=== PATIENT | female | born 1995 | race Hispanic/Latino ===

== ENCOUNTER 2018-09-20 02:33 | Emergency (ER) | payer MEDICAID, OTHER ==
[~2018-09-20 02:33] MED LIST: DOCU-116 PO; IBUP-2077 PO; PREN-154 PO
[2018-09-20 02:53] LABS: APPEARANCE,URINE Clear (CLEAR); BILIRUBIN,URINE Negative (NEGATIVE); COLOR,URINE Yellow (YELLOW); GLUCOSE, URINE (UA) Negative (NEGATIVE); KETONES,URINE Negative (NEGATIVE); LEUKOCYTE ESTERASE ,URINE Negative (NEGATIVE); NITRATE,URINE Negative (NEGATIVE); OCCULT BLOOD,URINE Trace (NEGATIVE); PROTEIN,URINE Negative (NEGATIVE)
[2018-09-20 03:01] LABS: AMPHET/METH SCREEN,URINE NEGATIVE (NEGATIVE); BARBITURATE SCREEN, URINE NEGATIVE (NEGATIVE); BENZODIAZEPINES SCREEN,URINE NEGATIVE (NEGATIVE); CANNABINOID SCREEN,URINE NEGATIVE (NEGATIVE); COCAINE SCREEN,URINE NEGATIVE (NEGATIVE); OPIATE SCREEN,URINE NEGATIVE (NEGATIVE); PHENCYCLIDINE SCREEN,URINE NEGATIVE (NEGATIVE)
[2018-09-20 03:05] LABS: BACTERIA,URINE None Seen /HPF (None Seen); MUCUS,URINE Many LPF (None Seen); RBC,URINE None Seen /HPF (0-1); SQUAMOUS EPITHELIAL CELL,UR Few /HPF (0-2); WBC,URINE None Seen /HPF (0-1)
[2018-09-20 03:06] LABS: HCG,QUAL RESULT POSITIVE (NEGATIVE)
[2018-09-20 03:24] LABS: BASOPHILS % (AUTO) 0.8 % (0.0-5.0); EOSINOPHILS % (AUTO) 1.3 % (0.0-8.0); HEMATOCRIT 38.2 % (36-48); MEAN CORPUSCULAR HEMOGLOBIN 25.1 pg (27.0-33.0); MEAN CORPUSCULAR HGB CONC 32.7 g/dL (32.0-36.0); MEAN CORPUSCULAR VOLUME 76.7 fL (79-99); MONOCYTES % (AUTO) 6.1 % (3.0-13.0); NEUTROPHILS % (AUTO) 64.8 % (40.0-77.0); NUCLEATED RED BLOOD CELLS 0.1 % (0.0-0.19); PLATELET COUNT (AUTO) 294 K/uL (130-400); RED BLOOD CELL COUNT(AUTO) 4.98 MIL/uL (4.00-5.50); RED CELL DISTRIBUTION WIDTH 16.8 % (11.0-15.5); WHITE BLOOD COUNT (AUTO) 8.2 K/uL (4.8-10.8)
[2018-09-20 03:32] LABS: CREATININE 0.6 mg/dL (0.5-1.5); POTASSIUM 3.9 mmol/L (3.5-5.1)
[2018-09-20 03:57] LABS: ALBUMIN 3.6 g/dL (3.5-5.0); BILIRUBIN,TOTAL 0.4 mg/dL (0.2-1.0)
[2018-09-20] MEDS ORDERED: ACETAMINOPHEN 325 MG TAB ONE (05:01)
== END 2018-09-20 05:44 | disposition home or self-care (01) ==
LOC: EDH 02:33
DX: O20.0 Threatened abortion (principal); Z3A.01 Less than 8 weeks gestation of pregnancy
CPT/HCPCS: 36415; 76801; 80053; 80305; 81001; 81025; 84702; 85025

== ENCOUNTER 2018-12-20 21:35 | Emergency (ER) | payer MEDICAID ==
[2018-12-20 22:25] LABS: BASOPHILS % (AUTO) 0.5 % (0.0-5.0); EOSINOPHILS % (AUTO) 0.8 % (0.0-8.0); HEMATOCRIT 39.6 % (36-48); LYMPHOCYTES % (AUTO) 24.6 % (21.0-51.0); MEAN CORPUSCULAR HEMOGLOBIN 25.1 pg (27.0-33.0); MONOCYTES % (AUTO) 5.9 % (3.0-13.0); NEUTROPHILS % (AUTO) 68.2 % (40.0-77.0); PLATELET COUNT (AUTO) 276 K/uL (130-400); RED BLOOD CELL COUNT(AUTO) 5.21 MIL/uL (4.00-5.50); RED CELL DISTRIBUTION WIDTH 16.7 % (11.0-15.5); WHITE BLOOD COUNT (AUTO) 7.9 K/uL (4.8-10.8)
== END 2018-12-20 23:51 | disposition home or self-care (01) ==
LOC: EDH 21:35
DX: O20.0 Threatened abortion (principal); Z3A.13 13 weeks gestation of pregnancy
CPT/HCPCS: 36415; 76801; 76802; 84702; 85025; 86900; 86901

== ENCOUNTER 2019-01-22 01:52 | Emergency (ER) | payer MEDICAID ==
[2019-01-22 03:02] LABS: APPEARANCE,URINE Clear (CLEAR); BILIRUBIN,URINE Negative (NEGATIVE); COLOR,URINE Yellow (YELLOW); GLUCOSE, URINE (UA) Negative (NEGATIVE); KETONES,URINE Negative (NEGATIVE); LEUKOCYTE ESTERASE ,URINE Trace (NEGATIVE); NITRATE,URINE Negative (NEGATIVE); OCCULT BLOOD,URINE Large (NEGATIVE); PH,URINE 6.5 (5.0-8.0); PROTEIN,URINE Negative (NEGATIVE)
[2019-01-22 03:10] LABS: CREATININE 0.4 mg/dL (0.5-1.5); POTASSIUM 3.6 mmol/L (3.5-5.1)
[2019-01-22 03:16] LABS: BACTERIA,URINE Few /HPF (None Seen); RBC,URINE 0-1 /HPF (0-1); WBC,URINE 0-1 /HPF (0-1)
[2019-01-22 03:17] LABS: BASOPHILS % (AUTO) 0.5 % (0.0-5.0); EOSINOPHILS % (AUTO) 1.5 % (0.0-8.0); HEMATOCRIT 30.1 % (36-48); LYMPHOCYTES % (AUTO) 31.4 % (21.0-51.0); MEAN CORPUSCULAR HEMOGLOBIN 24.3 pg (27.0-33.0); MEAN CORPUSCULAR HGB CONC 32.6 g/dL (32.0-36.0); MEAN CORPUSCULAR VOLUME 74.6 fL (79-99); MONOCYTES % (AUTO) 7.1 % (3.0-13.0); NEUTROPHILS % (AUTO) 59.5 % (40.0-77.0); NUCLEATED RED BLOOD CELLS 0.1 % (0.0-0.19); PLATELET COUNT (AUTO) 256 K/uL (130-400); RED BLOOD CELL COUNT(AUTO) 4.03 MIL/uL (4.00-5.50); RED CELL DISTRIBUTION WIDTH 16.9 % (11.0-15.5); WHITE BLOOD COUNT (AUTO) 7.8 K/uL (4.8-10.8)
[2019-01-22 03:17] LABS: MUCUS,URINE Few LPF (None Seen); SQUAMOUS EPITHELIAL CELL,UR Few /HPF (0-2)
[2019-01-22 03:36] LABS: ALBUMIN 2.6 g/dL (3.5-5.0); BILIRUBIN,TOTAL 0.2 mg/dL (0.2-1.0); TOTAL PROTEIN, SERUM 6.1 g/dL (6.0-8.3)
== END 2019-01-22 05:44 | disposition home or self-care (01) ==
LOC: EDH 01:52
DX: O26.892 Other specified pregnancy related conditions, second trimester (principal); R10.2 Pelvic and perineal pain; O20.9 Hemorrhage in early pregnancy, unspecified; Z3A.16 16 weeks gestation of pregnancy
CPT/HCPCS: 36415; 76805; 76810; 80053; 81001; 83690; 84702; 85025

== ENCOUNTER 2019-11-27 20:30 | Inpatient (IN) | payer MEDICAID ==
[~2019-11-27] VITALS: Ht 154.9 cm; Wt 96.6 kg
[2019-11-27] MEDS ORDERED: LACTATED RINGERS 1000ML IV PRN (20:45)
[2019-11-27 20:49] VITALS: BP 114/68
[2019-11-27 21:20] LABS: APPEARANCE,URINE Cloudy (CLEAR); BILIRUBIN,URINE Negative (NEGATIVE); COLOR,URINE Yellow (YELLOW); GLUCOSE, URINE (UA) Negative (NEGATIVE); KETONES,URINE Trace mg/dL (NEGATIVE); LEUKOCYTE ESTERASE ,URINE Small (NEGATIVE); NITRATE,URINE Negative (NEGATIVE); OCCULT BLOOD,URINE Negative (NEGATIVE); PH,URINE 5.5 (5.0-8.0); PROTEIN,URINE Trace mg/dL (NEGATIVE)
[2019-11-27 21:32] LABS: BACTERIA,URINE Few /HPF (None Seen); CALCIUM OXALATE CRYSTALS,UR Few /LPF (None Seen); RBC,URINE None Seen /HPF (0-1); WBC,URINE 0-1 /HPF (0-1)
[2019-11-27 22:00] LABS: AMPHET/METH SCREEN,URINE NEGATIVE (NEGATIVE); BARBITURATE SCREEN, URINE NEGATIVE (NEGATIVE); BENZODIAZEPINES SCREEN,URINE NEGATIVE (NEGATIVE); CANNABINOID SCREEN,URINE NEGATIVE (NEGATIVE); COCAINE SCREEN,URINE NEGATIVE (NEGATIVE); OPIATE SCREEN,URINE NEGATIVE (NEGATIVE); PHENCYCLIDINE SCREEN,URINE NEGATIVE (NEGATIVE)
[2019-11-27] MEDS ORDERED: MEPERIDINE-PF 50 MG/ML SYG IVP PRN (22:15)
[2019-11-27] MEDS ORDERED: PROMETHAZINE HCL 25 MG/ML 1ML AMPULE IM PRN (22:15)
[2019-11-27 23:05] LABS: HEMATOCRIT 24.7 % (36-48); MEAN CORPUSCULAR HEMOGLOBIN 19.7 pg (27.0-33.0); MEAN CORPUSCULAR HGB CONC 28.7 g/dL (32.0-36.0); MEAN CORPUSCULAR VOLUME 68.6 fL (79-99); NUCLEATED RED BLOOD CELLS 1.1 % (0.0-0.19); PLATELET COUNT (AUTO) 154 K/uL (130-400); RED CELL DISTRIBUTION WIDTH 19.2 % (11.0-15.5)
[2019-11-28] MEDS: LACTATED RINGERS 1000ML 1,000 ML IV PRN ×2 (00:48→03:34)
[2019-11-28] MEDS ORDERED: OXYTOCIN 10 USP UNITS/ML 20 UNIT in LACTATED RINGERS 1000ML 1,000 ML IV SCH (05:15)
[2019-11-28] MEDS: OXYTOCIN-LR 20 UNITS/1000 ML 1,000 ML IV SCH ×2 (05:23→22:15)
[2019-11-28] MEDS ORDERED: LACTATED RINGERS 500 ML 500 ML IV PRN (05:45)
[2019-11-28] MEDS ORDERED: ROPIVACAINE 0.2% 100ML VIAL 100 ML EP SCH (05:45)
[2019-11-28] MEDS ORDERED: NALOXONE HCL 0.4 MG/1 ML ML IV PRN (05:45)
[2019-11-28] MEDS ORDERED: EPHEDRINE SULFATE 50 MG/ML AMPULE IVP PRN (05:45)
[2019-11-28] MEDS ORDERED: DiphenhydrAMINE HCL 50 MG/ML VIAL IVP PRN (07:30)
[2019-11-28] MEDS ORDERED: NALOXONE HCL 0.4 MG/1 ML ML IVP PRN ×3 (07:30)
[2019-11-28] MEDS ORDERED: ONDANSETRON HCL 4 MG/2 ML VIAL IVP PRN (07:30)
[2019-11-28] MEDS ORDERED: BENZOCAINE/LANOLIN/ALOE VERA 60 ML AEROSOL TP PRN (09:15)
[2019-11-28] MEDS ORDERED: OXYTOCIN-LR 20 UNITS/1000 ML 1,000 ML IV SCH (09:15)
[2019-11-28] MEDS ORDERED: ACETAMINOPHEN-CODEINE 300/30MG TAB PO PRN (09:15)
[2019-11-28] MEDS ORDERED: MEASLES/MUMPS/RUBELLA VACCINE, LIVE 0.5 ML/VIAL SQ PRN (09:15)
[2019-11-28] MEDS ORDERED: DIPH,PERTUSS(ACELL),TET VAC/PF 0.5 ML VIAL IM PRN (09:15)
[2019-11-28] MEDS ORDERED: LANOLIN 30GM OINTMENT TP PRN (09:15)
[2019-11-28] MEDS ORDERED: WITCH HAZEL 1 PAD TP PRN (09:15)
[2019-11-28] MEDS ORDERED: ACETAMINOPHEN 325 MG TAB PO PRN (09:15)
[2019-11-28 10:42] VITALS: BP 118/55
[2019-11-28 10:50] LABS: RAPID PLASMA REAGIN NONREACTIVE (NONREACTIVE)
[2019-11-28] MEDS ORDERED: PNV11TAB5 PO (12:42)
[2019-11-28] MEDS: IBUPROFEN 600 MG TABLET PO PRN ×2 (13:38→19:34)
[2019-11-28 16:32] VITALS: BP 109/52
--- NOTE | 2019-11-28 18:00 | NUR ---
PIV CONVERTED TO SALINE LOCK AND FLUSHED WITH 5CC NS.
--- NOTE | 2019-11-28 19:15 | NUR ---
BEDSIDE REPORT GIVEN TO Roman WATTS RN AND PATIENT CARE TRANSFERED AT THIS TIME.
[2019-11-28] MEDS: DOCUSATE SODIUM 100 MG CAP PO SCH (19:33)
[2019-11-28 19:53] VITALS: BP 112/57
[2019-11-28 23:48] VITALS: BP 115/56
[2019-11-29 03:21] VITALS: BP 97/50
[2019-11-29] MEDS: IBUPROFEN 600 MG TABLET PO PRN (03:44)
[2019-11-29 06:10] LABS: HEPATITIS Bs ANTIGEN SCREEN P Negative (Negative)
[2019-11-29 07:06] VITALS: BP 95/57
[2019-11-29 07:38] LABS: HEMATOCRIT 22.7 % (36-48); MEAN CORPUSCULAR HEMOGLOBIN 20.1 pg (27.0-33.0); MEAN CORPUSCULAR HGB CONC 28.6 g/dL (32.0-36.0); MEAN CORPUSCULAR VOLUME 70.1 fL (79-99); NUCLEATED RED BLOOD CELLS 0.7 % (0.0-0.19); PLATELET COUNT (AUTO) 147 K/uL (130-400); RED BLOOD CELL COUNT(AUTO) 3.24 MIL/uL (4.00-5.50); RED CELL DISTRIBUTION WIDTH 19.5 % (11.0-15.5); WHITE BLOOD COUNT (AUTO) 8.7 K/uL (4.8-10.8)
[2019-11-29] MEDS: DOCUSATE SODIUM 100 MG CAP PO SCH (07:53)
--- NOTE | 2019-11-29 08:45 | NUR ---
DR. GLORIA WAS INFORMED OF LOW H/H BUT CONSISTENT WITH INITIAL H/H LEVELS. ALSO OF PATIENT DENIES ANY HEADACHE, CHEST PAIN, OR SHORTNESS OF BREATH. NO BLOOD TRANSFUSION ORDERED AFTER LAST 24 HOUR VITAL SIGNS GIVEN.
--- NOTE | 2019-11-29 10:30 | NUR ---
DR. EDWARDO GLORIA ROUNDED AND DISCHARGED PATIENT TO HOME. PATIENT HAD SALINE LOCK AND WAS REMOVED FOR DISCHARGE. PATIENT INSTRUCTED ON IMPORTANCE TO TAKE IRON AND SCRIPT WAS WRITTEN FOR IRON AND MOTRIN.
[2019-11-29 12:00] VITALS: BP 117/74
--- NOTE | 2019-11-29 13:35 | NUR ---
PATIENT WAS TAKEN VIA W/C TO FAMILY [facility]HICLE AND WAS DISCHARGED WITH BABY TO HOME. PATIENT STABLE AND DENIES PAIN.
== END 2019-11-29 13:35 | disposition home or self-care (01) | DRG 560 ==
LOC: EDH 20:30 → OBSVTOIN 20:31 → LDH 20:31 → WSH 11-28 10:40
PROVIDERS: ADMIT Obstetrics & Gynecology; ATTEND Obstetrics & Gynecology
PROC: 10E0XZZ Delivery of Products of Conception, External Approach (ICD-10-PCS; principal; 2019-11-28)
PROC: 10907ZC Drainage of Amniotic Fluid, Therapeutic from Products of Conception, Via Natural or Artificial Opening (ICD-10-PCS; 2019-11-28)
PROC: 3E033VJ Introduction of Other Hormone into Peripheral Vein, Percutaneous Approach (ICD-10-PCS; 2019-11-28)
PROC: 00HU33Z Insertion of Infusion Device into Spinal Canal, Percutaneous Approach (ICD-10-PCS; 2019-11-28)
PROC: 3E0R3BZ Introduction of Anesthetic Agent into Spinal Canal, Percutaneous Approach (ICD-10-PCS; 2019-11-28)
DX: O69.1XX0 Labor and delivery complicated by cord around neck, with compression, not applicable or unspecified (principal); Z37.0 Single live birth; Z3A.38 38 weeks gestation of pregnancy
CPT/HCPCS: 36415; 80305; 81001; 85027; 86592; 86701; 86850; 86900; 86901; 87340; 87390; A4314; G0378; J2590; J2795; J3490; J7120

== ENCOUNTER 2024-02-05 13:38 | Emergency (ER) | payer MEDICAID, OTHER ==
[~2024-02-05] VITALS: Ht 154.9 cm; Wt 86.2 kg
[~2024-02-05 13:38] MED LIST changes: +PNV11TAB5 PO
[2024-02-05] MEDS ORDERED: KETO10TA2 PO (14:40)
[2024-02-05 14:50] VITALS: BP 137/76; PULSE 86; RESP 18; O2SAT 98
== END 2024-02-05 15:02 | disposition home or self-care (01) ==
LOC: EDH 13:38
DX: S93.491A Sprain of other ligament of right ankle, initial encounter (principal); M79.89 Other specified soft tissue disorders; Z79.899 Other long term (current) drug therapy; Z98.890 Other specified postprocedural states; X58.XXXA Exposure to other specified factors, initial encounter; Y93.89 Activity, other specified; Y92.89 Other specified places as the place of occurrence of the external cause; Y99.8 Other external cause status
CPT/HCPCS: 29515; 73610

== ENCOUNTER 2024-07-30 17:29 | Emergency (ER) | payer SELFPAY ==
[~2024-07-30] VITALS: Ht 154.9 cm; Wt 83.0 kg
[~2024-07-30 17:29] MED LIST changes: +KETO10TA2 PO
--- NOTE | 2024-07-30 17:44 | ERN ---
General Chief Complaint: Cough Stated Complaint: COUGH Time Seen by MD: 17:31 History of Present Illness Initial Comments Otherwise healthy 29-year-old female who presents for flu-like symptoms. Patient reports that this afternoon she developed a sudden onset body aches, s ore throat, cough, and musculoskeletal/pleuritic chest discomfort. Denies medical history. Denies surgical history. Denies . Brought in by EMS from home. Stable vital signs. EMS gave aspirin. Allergies: Coded Allergies: No Known Drug Allergies (Verified Allergy, 07/20/13) Home Meds Active Scripts Ketorolac Tromethamine (Ketorolac Tromethamine) 10 Mg Tablet, 10 MG PO BID for 5 Days, #10 TAB Prov:CLAYTON FARAH 02/05/24 Ibuprofen (Ibuprofen 800 mg Tab) 800 Mg Tab, 800 MG PO Q8H PRN for PAIN, #30 TAB Prov:ROSA BECKER VISITOR SERVICES INFORMATION ASSISTANT 05/25/17 Docusate Sodium (Colace) 100 Mg Capsule, 100 MG PO BID, #60 CAP 0 Refills Prov:ROSA BECKER VISITOR SERVICES INFORMATION ASSISTANT 05/25/17 Reported Medications Kqn167/FA/Omega3/Dha/Fish Oil ( Gummies) 1 Each Tab.chew, 1 EACH PO DAILY, TAB.CHEW 11/28/19 Vits #93/Iron Fum/FA ( Formula Tablet) 1 Each Tablet, 1 EACH PO DAILY, TAB 05/24/17 Past Medical History Past Medical History: No Pertinent History Past Surgical History: Other Surgical History Other: TUMMY TUCK ROS Dictation CONSTITUTIONAL: Chills body aches fever HEAD/FACE: No signs of trauma. EENT: Sore throat RESPIRATORY: Cough CARDIOVASCULAR: Pleuritic chest pain GASTROINTESTINAL/ABDOMINAL: No abdominal pain, no constipation, no diarrhea, no nausea, no vomiting. GENITOURINARY: No abnormal discharge, no dysuria, no frequent urination, no hematuria. No complaints of pain in the genitals. MUSCULOSKELETAL: No back pain, no gout, no joint pain, no joint swelling, no muscle pain, no muscle stiffness, no neck pain. INTEGUMENTARY: No change in color, no change in hair/nails, no dryness, no lesion, no lumps, no rash. NEUROLOGICAL/PSYCH: No anxiety, not depressed, no emotional problem, no headache, no numbness, no pre-existing deficit, no history of seizures, no tremors, no weakness. HEMATOLOGIC/LYMPHATIC: Not anemic, no history of blood clots, no apparent bleeding, no bruising, glands not swollen. All Systems Negative, Except as Noted. Physical Exam Physical Exam Dictation VITAL SIGNS: Reviewed. GENERAL APPEARANCE: Alert, oriented x3, no acute distress,. HEAD AND FACE: Non-traumatic. EYES: PERRL, pink conjunctivas, eyelid no trauma, anterior chamber clear. EARS: Pinnas intact and no signs of trauma or erythema. Ear canals clear and no discharge. TMs no erythema. NOSE: No discharge, no bleeding. OROPHARYNX: Mouth normal, teeth no caries, tongue pink. Pharynx clear, no erythema. Tonsils no exudates, no abscesses noted. Mucous membrane moist. NECK: Supple, non-tender, no thyromegaly, no masses, no JVD, no bruits. BREAST: Deferred. CHEST: No tenderness, no crepitus, no paradoxical movement, no retractions. LUNGS: Clear, well-ventilated, symmetric, no rales, no wheezing, no rhonchi, no stridor, good breath sounds bilaterally. HEART: Regular rate, regular rhythm, no murmur, no gallops. VASCULAR: No peripheral edema. ABDOMEN: Soft, positive bowel sounds, nondistended, no guarding, nontender, no rebound, no masses no hepatomegaly, no splenomegaly, no Rogers's sign, no hernias. RECTAL: Deferred. GENITAL: Deferred. NEUROLOGICAL: Normal speech, gross motor function intact, gross sensory function intact. MUSCULOSKELETAL: Neck nontender, full range of motion, back nontender, full range of motion. EXTREMITIES: Nontender, full range of motion. SKIN: Color pink, dry, no turgor, no rash, no lacerations, no abrasions, no contusions. LYMPHATICS: Deferred. Results Laboratory and Microbiology Lab and Micro Result Laboratory Tests Test 07/30/24 18:04 Influenza Type A Antigen Negative For Type A Influenza Type B Antigen Negative For Type B SARS-CoV-2 Antigen (Rapid) PRESUMPTIVE NEGATIVE MDM CC: Cough congestion sore throat body aches Historian: Patient Comorbidities: None Limitations by social determinants of health: None Vital signs stable Nontoxic in appearance Symptoms consistent with a flu-like illness Given Toradol in the ER Flu SARS negative We will DC with supportive care. ED Course Orders Procedure Category Date Status Time 12 Lead Ekg Tracing- EKG 07/30/24 Logged Technical 17:37 Influenza Type A & B, LAB 07/30/24 Complete Rapid 17:37 Ketorolac PHA 07/30/24 Complete Tromethamine 15mg/Ml 18:00 Covid19 (Sars Antigen LAB 07/30/24 Complete Rapid) 17:37 Current Medications Medications (Trade) Dose Ordered Sig/Ashlee Route PRN Reason Start Time Stop Time Status Last Admin Dose Admin Ketorolac Tromethamine (toRADol) 15 mg ONCE ONCE IM 07/30/24 18:00 07/30/24 18:01 DC 07/30/24 18:20 Vital Signs Date Time Temp Pulse Resp B/P (MAP) Pulse Ox O2 Delivery O2 Flow Rate FiO2 07/30/24 18:34 98.4 84 18 105/57 99 Room Air* 0 21 07/30/24 17:31 98.8 85 19 114/75 99 Room Air 0 DX & DISP Disposition: Discharge Departure Impression: Primary Impression: Flu-like symptoms Additional Impression: Viral URI Condition: Stable Additional Instructions: Your symptoms are consistent with a viral flu-like illness. This type of infection does not require antibiotics. Your oxygen level stable. Your lung sounds are clear. Your flu and COVID swabs are negative. I recommend [id number] cough and congestion medications such as DayQuil and Mucinex. Please follow up with your primary doctor in 48 hours for re-evaluation if you continue with symptoms. Return to the emergency department as needed. Referrals: NONE (PCP) LEELEE AARON DO Jul 30, 2024 17:44
[2024-07-30] MEDS: ketOROlac 15MG/ML VIAL (15MG/ML) IM ONE (18:20)
[2024-07-30 18:27] LABS: COVID19 (SARS ANTIGEN RAPID) PRESUMPTIVE NEGATIVE (NEGATIVE); INFLUENZA TYPE A Negative For Type A (NEGATIVE); INFLUENZA TYPE B Negative For Type B (NEGATIVE)
[2024-07-30 18:34] VITALS: BP 105/57; PULSE 84; RESP 18; TEMP 98.4; O2SAT 99
--- NOTE | 2024-07-31 08:52 | EKG ---
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
== END 2024-07-30 19:09 | disposition home or self-care (01) ==
LOC: EDH 17:29
DX: J06.9 Acute upper respiratory infection, unspecified (principal); B97.89 Other viral agents as the cause of diseases classified elsewhere; Z20.822 Contact with and (suspected) exposure to COVID-19
CPT/HCPCS: 99284; 87426; 87804 ×2; 96372; 93005; J1885

== ENCOUNTER 2024-10-18 07:15 | Emergency (ER) | payer SELFPAY ==
[~2024-10-18] VITALS: Ht 154.9 cm; Wt 81.6 kg
[2024-10-18 08:06] LABS: BASOPHILS # (AUTO) 0.05 K/uL (0.00-0.20); BASOPHILS % (AUTO) 0.3 % (0.0-5.0); EOSINOPHILS # (AUTO) 0.06 K/uL (0.00-0.70); EOSINOPHILS % (AUTO) 0.4 % (0.0-8.0); HEMATOCRIT 43.5 % (36-48); IMMATURE GRANULOCYTE ABSOLUTE 0.06 K/uL (0-1); LYMPHOCYTES # (AUTO) 1.4 K/uL (1.0-4.8); LYMPHOCYTES % (AUTO) 9.7 % (21.0-51.0); MEAN CORPUSCULAR HEMOGLOBIN 27.4 pg (27.0-33.0); MEAN CORPUSCULAR HGB CONC 32.9 g/dL (32.0-36.0); MEAN CORPUSCULAR VOLUME 83.5 fL (79-99); MONOCYTES # (AUTO) 0.6 K/uL (0.1-1.0); MONOCYTES % (AUTO) 3.8 % (3.0-13.0); NEUTROPHILS # (AUTO) 12.3 K/uL (1.8-7.7); NEUTROPHILS % (AUTO) 85.4 % (40.0-77.0); PLATELET COUNT (AUTO) 301 K/uL (130-400); RED BLOOD CELL COUNT(AUTO) 5.21 MIL/uL (4.00-5.50); WHITE BLOOD COUNT (AUTO) 14.4 K/uL (4.8-10.8)
[2024-10-18 08:15] LABS: CREATININE 0.8 mg/dL (0.5-1.0); POTASSIUM 4.9 mmol/L (3.5-5.1)
[2024-10-18 08:20] LABS: MAGNESIUM 1.8 mg/dL (1.80-2.40)
[2024-10-18 08:21] LABS: INR 0.96 (0.85-1.15); PROTHROMBIN TIME 10.8 SEC (9.6-11.6)
[2024-10-18 08:22] LABS: PARTIAL THROMBOPLASTIN TIME 24.3 SEC (26.3-35.5)
[2024-10-18] MEDS: LACTATED RINGERS 1000ML 1,000 ML IV ONE (08:31)
[2024-10-18 08:39] LABS: B-TYPE NATRIURETIC PEPTIDE 22 pg/mL (0-100)
--- NOTE | 2024-10-18 08:57 | ERN ---
General Chief Complaint: Chest Pain Stated Complaint: CHEST PAIN AND VERY ANXIOUS Time Seen by MD: 07:19 Source: patient History of Present Illness Initial Comments 29-year-old female coming in to be evaluated for chest pressure. Patient states that the pressure began earlier today in his here for further evaluation. Patient does not have cardiac history. Allergies: Coded Allergies: No Known Drug Allergies (Verified Allergy, 07/20/13) Home Meds Active Scripts Ketorolac Tromethamine (Ketorolac Tromethamine) 10 Mg Tablet, 10 MG PO BID for 5 Days, #10 TAB Prov:CLAYTON FARAH PA 02/05/24 Ibuprofen (Ibuprofen 800 mg Tab) 800 Mg Tab, 800 MG PO Q8H PRN for PAIN, #30 TAB Prov:ROSA BECKER ATTENDANT COIN OPERATED LAUNDRY 05/25/17 Docusate Sodium (Colace) 100 Mg Capsule, 100 MG PO BID, #60 CAP 0 Refills Prov:ROSA BECKER ATTENDANT COIN OPERATED LAUNDRY 05/25/17 Reported Medications Aul943/FA/Omega3/Dha/Fish Oil ( Gummies) 1 Each Tab.chew, 1 EACH PO DAILY, TAB.CHEW 11/28/19 Vits #93/Iron Fum/FA ( Formula Tablet) 1 Each Tablet, 1 EACH PO DAILY, TAB 05/24/17 Past Medical History Past Medical History: No Pertinent History Past Surgical History: None Surgical History Other: TUMMY JENAECK ROS Dictation CONSTITUTIONAL: No chills, no fever, no weakness, no diaphoresis, no malaise. HEAD/FACE: No signs of trauma. EENT: No eye pain, no blurred vision, no tearing, no double vision, no ear pain, no ear discharge, no nose pain, no nasal congestion, no throat pain, no throat swelling, no mouth pain. RESPIRATORY: No cough, no orthopnea, no SOB, no stridor, no wheezing. CARDIOVASCULAR: chest pain, no edema, no palpitations, no syncope. GASTROINTESTINAL/ABDOMINAL: No abdominal pain, no constipation, no diarrhea, no nausea, no vomiting. GENITOURINARY: No abnormal discharge, no dysuria, no frequent urination, no hematuria. No complaints of pain in the genitals. MUSCULOSKELETAL: No back pain, no gout, no joint pain, no joint swelling, no muscle pain, no muscle stiffness, no neck pain. INTEGUMENTARY: No change in color, no change in hair/nails, no dryness, no lesion, no lumps, no rash. NEUROLOGICAL/PSYCH: No anxiety, not depressed, no emotional problem, no headache, no numbness, no pre-existing deficit, no history of seizures, no tremors, no weakness. HEMATOLOGIC/LYMPHATIC: Not anemic, no history of blood clots, no apparent bleeding, no bruising, glands not swollen. All Systems Negative, Except as Noted. Physical Exam Physical Exam Dictation VITAL SIGNS: Reviewed. GENERAL APPEARANCE: Alert, oriented x3, no acute distress, obese. HEAD AND FACE: Non-traumatic. EYES: PERRL, pink conjunctivas, eyelid no trauma, anterior chamber clear. EARS: Pinnas intact and no signs of trauma or erythema. Ear canals clear and no discharge. TMs no erythema. NOSE: No discharge, no bleeding. OROPHARYNX: Mouth normal, teeth no caries, tongue pink. Pharynx clear, no erythema. Tonsils no exudates, no abscesses noted. Mucous membrane moist. NECK: Supple, non-tender, no thyromegaly, no masses, no JVD, no bruits. BREAST: Deferred. CHEST: No tenderness, no crepitus, no paradoxical movement, no retractions. LUNGS: Clear, well-ventilated, symmetric, no rales, no wheezing, no rhonchi, no stridor, good breath sounds bilaterally. HEART: Regular rate, regular rhythm, no murmur, no gallops. VASCULAR: No peripheral edema. ABDOMEN: Soft, positive bowel sounds, nondistended, no guarding, nontender, no rebound, no masses no hepatomegaly, no splenomegaly, no Rogers's sign, no hernias. RECTAL: Deferred. GENITAL: Deferred. NEUROLOGICAL: Normal speech, gross motor function intact, gross sensory function intact. MUSCULOSKELETAL: Neck nontender, full range of motion, back nontender, full range of motion. EXTREMITIES: Nontender, full range of motion. SKIN: Color pink, dry, no turgor, no rash, no lacerations, no abrasions, no contusions. LYMPHATICS: Deferred. Results Laboratory and Microbiology Lab and Micro Result Laboratory Tests Test 10/18/24 07:51 10/18/24 09:19 White Blood Count 14.4 K/uL (4.8-10.8) H Red Blood Count 5.21 MIL/uL (4.00-5.50) Hemoglobin 14.3 g/dL (12.0-16.0) Hematocrit 43.5 % (36-48) Mean Corpuscular Volume 83.5 fL (79-99) Mean Corpuscular Hemoglobin 27.4 pg (27.0-33.0) Mean Corpuscular Hemoglobin Concent 32.9 g/dL (32.0-36.0) Red Cell Distribution Width 14.0 % (11.0-15.5) Platelet Count 301 K/uL (130-400) Mean Platelet Volume 9.8 fL (7.5-10.5) Immature Granulocyte % (Auto) 0.4 % (0-1) Neutrophils (%) (Auto) 85.4 % (40.0-77.0) H Lymphocytes (%) (Auto) 9.7 % (21.0-51.0) L Monocytes (%) (Auto) 3.8 % (3.0-13.0) Eosinophils (%) (Auto) 0.4 % (0.0-8.0) Basophils (%) (Auto) 0.3 % (0.0-5.0) Neutrophils # (Auto) 12.3 K/uL (1.8-7.7) H Lymphocytes # (Auto) 1.4 K/uL (1.0-4.8) Monocytes # (Auto) 0.6 K/uL (0.1-1.0) Eosinophils # (Auto) 0.06 K/uL (0.00-0.70) Basophils # (Auto) 0.05 K/uL (0.00-0.20) Absolute Immature Granulocyte (auto 0.06 K/uL (0-1) Nucleated Red Blood Cells 0.0 % (0.0-0.19) White Cell Morphology Comment See comments Prothrombin Time 10.8 SEC (9.6-11.6) Prothromb Time International Ratio 0.96 (0.85-1.15) Activated Partial Thromboplast Time 24.3 SEC (26.3-35.5) L Sodium Level 134 mmol/L (136-145) L Potassium Level 4.9 mmol/L (3.5-5.1) Chloride Level 102 mmol/L (101-111) Carbon Dioxide Level 27 mmol/L (21-32) Blood Urea Nitrogen 13 mg/dL (7-18) Creatinine 0.8 mg/dL (0.5-1.0) Glomerular Filtration Rate Calc 101 mL/min (>90) Random Glucose 146 mg/dL (70-105) H Total Calcium 8.8 mg/dL (8.5-10.1) Magnesium Level 1.80 mg/dL (1.80-2.40) Total Creatine Kinase 81 U/L (21-232) Troponin I High Sensitivity 10 ng/L (4-50) B-Type Natriuretic Peptide 22 pg/mL (0-100) Urine Color YELLOW (YELLOW) Urine Appearance HAZY (CLEAR) Urine pH 6.0 (5.0-8.0) Urine Specific [place] 1.037 (1.001-1.031) Urine Protein 30 mg/dL (NEGATIVE) H Urine Glucose (UA) NEGATIVE mg/dL (NEGATIVE) Urine Ketones 5 mg/dL (NEGATIVE) H Urine Occult Blood NEGATIVE (NEGATIVE) Urine Nitrate NEGATIVE (NEGATIVE) Urine Bilirubin 0.5 mg/dL (NEGATIVE) H Urine Urobilinogen 3 mg/dL (0.2-1.0) H Urine Leukocyte Esterase 25 Fab/uL (NEGATIVE) H Urine RBC 0-1 /HPF (0-1) Urine WBC 2-5 /HPF (0-1) H Urine Squamous Epithelial Cells FEW /HPF (0-2) Urine Bacteria FEW /HPF (None Seen) Urine Opiates Screen NEGATIVE (NEGATIVE) Urine Barbiturates Screen NEGATIVE (NEGATIVE) Urine Phencyclidine Screen NEGATIVE (NEGATIVE) Urine Amphetamines Screen NEGATIVE (NEGATIVE) Urine Benzodiazepines Screen NEGATIVE (NEGATIVE) Urine Cocaine Screen NEGATIVE (NEGATIVE) Urine Marijuana (THC) Screen NEGATIVE (NEGATIVE) Labs Reviewed?: Yes EKG/XRAY/US/CT/MRI EKG Comment 10/18/2024 time 8:01 a.m. Ventricular rate 53 [place] [address] wave elevation or depression MDM MDM: Differential diagnosis: Chest pressure, NSTEMI, STEMI, UTI, gastritis Patient is a 29-year-old female coming in to be evaluated for chest pressure. Patient states her symptoms improved significantly since being here. Cardiac workup negative for acute findings. Patient was positive for urinary tract infection received some IV Rocephin with a discharged in stable condition and asymptomatic. Antibiotics will be provided ED Course Orders Procedure Category Date Status Time Cbc With Differential LAB 10/18/24 Complete 07:24 Prothrombin Time With LAB 10/18/24 Complete INR 07:24 B-Type Natriuretic LAB 10/18/24 Complete Peptide 07:24 Chest 1vw RAD 10/18/24 Resulted 07:24 12 Lead Ekg Tracing- EKG 10/18/24 Logged Technical 07:24 Lactated Ringers PHA 10/18/24 Complete 1000ml (Lactated 07:30 Magnesium LAB 10/18/24 Complete 07:24 Creatine Kinase, Total LAB 10/18/24 Complete 07:24 Troponin I High LAB 10/18/24 Complete Sensitivity 07:24 Urinalysis Profile LAB 10/18/24 Complete 07:24 Partial LAB 10/18/24 Complete Thromboplastin Time 07:24 Basic Metabolic Panel LAB 10/18/24 Complete 07:24 Drug Screen Urine LAB 10/18/24 Complete 07:24 Ceftriaxone 1g Vial PHA 10/18/24 Complete (Rocephine 1g Inj) 10:00 Current Medications Medications (Trade) Dose Ordered Sig/Ashlee Route PRN Reason Start Time Stop Time Status Last Admin Dose Admin Ceftriaxone Sodium (ROCEphine 1G INJ) 1 gm ONCE ONCE IVPB 10/18/24 10:00 10/18/24 10:01 DC Lactated Ringer's 1,000 ml @ 0 mls/hr ONCE ONCE IV 10/18/24 07:30 10/18/24 07:31 DC 10/18/24 08:31 Vital Signs Date Time Temp Pulse Resp B/P (MAP) Pulse Ox O2 Delivery O2 Flow Rate FiO2 10/18/24 07:17 57 24 101/65 97 Room Air 0 DX & DISP Disposition: Discharge Departure Impression: Primary Impression: UTI (urinary tract infection) Condition: Stable Scripts Cephalexin Monohydrate (Keflex) 500 Mg Cap 1 CAP PO BID for 10 Days, #20 CAP 0 Refills Prov: DIONNE CARPENTER MD 10/18/24 Additional Instructions: You have been reviewed in the emergency department at [facility] after presenting with chest pain. After considering your history, your risk factors, your EKG and your blood test troponins, have been found to be at very low risk less than (1 in 100) of having a major adverse cardiac event (like heart attack) in the near future. In the " low risk" group, the risks of doing further tests and treatment as the inpatient outweighs the benefits. In many patients in the low risk group for the test of any sort or unnecessary, however he should discuss this further with his general practitioner who will understand the medical and personal backgrounds better. Because we have never declared you" no risk" we would suggest. 1 returning for medical review if you have further episodes of chest pain/arm pain or other concerning symptoms like dizziness, collapse, palpitations or shortness of breath. 2. Following up with your local doctor who will consider the need for further testing and will also ensure that any modifiable risk factors you may have for heart disease are optimally managed. Patient will be discharged in stable condition at the moment discharge patient states , no chest pain Referrals: SELF,REFERRAL (PCP) CLAYTON JEFF MD Time of Disposition: 10:17 DIONNE CARPENTER MD Oct 18, 2024 08:57
[2024-10-18 09:39] LABS: BILIRUBIN,URINE 0.5 mg/dL (NEGATIVE); COLOR,URINE YELLOW (YELLOW); GLUCOSE, URINE (UA) NEGATIVE (NEGATIVE); KETONES,URINE 5 mg/dL (NEGATIVE); LEUKOCYTE ESTERASE ,URINE 25 Leu/uL (NEGATIVE); NITRATE,URINE NEGATIVE (NEGATIVE); OCCULT BLOOD,URINE NEGATIVE (NEGATIVE); PROTEIN,URINE 30 mg/dL (NEGATIVE); UROBILINOGEN,URINE 3 mg/dL (0.2-1.0)
[2024-10-18 09:41] LABS: ADD UA MICROSCOPIC YES; APPEARANCE,URINE HAZY (CLEAR)
[2024-10-18 09:45] LABS: BACTERIA,URINE FEW /HPF (None Seen); MUCUS,URINE MANY LPF (None Seen); RBC,URINE 0-1 /HPF (0-1); SQUAMOUS EPITHELIAL CELL,UR FEW /HPF (0-2)
[2024-10-18 09:52] LABS: AMPHET/METH SCREEN,URINE NEGATIVE (NEGATIVE); BARBITURATE SCREEN, URINE NEGATIVE (NEGATIVE); BENZODIAZEPINES SCREEN,URINE NEGATIVE (NEGATIVE); CANNABINOID SCREEN,URINE NEGATIVE (NEGATIVE); COCAINE SCREEN,URINE NEGATIVE (NEGATIVE); OPIATE SCREEN,URINE NEGATIVE (NEGATIVE); PHENCYCLIDINE SCREEN,URINE NEGATIVE (NEGATIVE)
--- NOTE | 2024-10-18 09:52 | HMCIMG ---
Exam Type: CHEST 1VW Clinical Information: CP Comparison: None Findings: The lungs are clear of infiltrates. The heart is normal in size. The bony and soft tissue structures of the chest are unremarkable. Impression: Clear lungs.
[2024-10-18] MEDS ORDERED: CEPH500B PO (10:18)
[2024-10-18] MEDS: cefTRIAXone 1G VIAL IVPB ONE (10:23)
[2024-10-18 10:40] VITALS: BP 99/45; PULSE 62; RESP 16; TEMP 97.7; O2SAT 99
--- NOTE | 2024-10-18 17:53 | EKG ---
[facility] Test Date: 2024-10-18 Test Time: 08:01:23 Pat Name: DAVIDA SAMANO Department: ED Room: Gender: F Banquet Attendant: MG : 1995 Requested By: DIONNE CARPENTER Order Number: [id number] Reading MD: Roland Clayton Measurements Intervals [place] Rate: 53 P: 25 CO: 127 QRS: 76 QRSD: 86 T: 38 QT: 429 QTc: 404 Interpretive Statements Sinus rhythm Compared to ECG 07/30/2024 17:55:42 No significant changes Electronically Signed On 10-20-2024 18:16:31 DIRECTOR INSTRUCTIONAL MATERIAL by Roland Clayton Please click the below link to view image of tracing.
== END 2024-10-18 11:05 | disposition home or self-care (01) ==
LOC: EDH 07:15
DX: N39.0 Urinary tract infection, site not specified (principal); Z79.899 Other long term (current) drug therapy
CPT/HCPCS: 99285; 96374; 71045; 96361; 82550; 83735; 84484; 80048; 83880; 80305; 85025; 85610; 85730; 36415; 93005; 81001; J7030; J0696